=== PATIENT | female | born 1965 ===

== ENCOUNTER 2024-07-24 12:11 | Emergency (ER) | payer MEDICARE ==
[~2024-07-24] VITALS: Ht 160 cm; Wt 72.6 kg
[2024-07-24] MEDS ORDERED: Ondansetron HCl 2 MG / ML 2ML Vial IV ONE (12:30)
[2024-07-24 12:41] LABS: BASOPHILS ABSOLUTE AUTO 0.05 K/mm3 (0.00-0.23); BASOPHILS PERCENT AUTO 1 % (0-2); EOSINOPHILS ABSOLUTE AUTO 0.07 K/mm3 (0.00-0.68); EOSINOPHILS PERCENT AUTO 1 % (0-6); IMMATURE GRAN ABSOLUTE AUTO 0.02 K/mm3 (0.00-0.10); IMMATURE GRAN PERCENT AUTO 0 % (0-1); LYMPHOCYTES ABSOLUTE AUTO 1.03 K/mm3 (0.84-5.20); LYMPHOCYTES PERCENT AUTO 13 % (21-46); MONOCYTES ABSOLUTE AUTO 0.33 K/mm3 (0.16-1.47); MONOCYTES PERCENT AUTO 4 % (4-13); Mean Corpuscular HGB 32.5 pg (26.0-34.0); Mean Corpuscular HGB Conc 33.3 g/dL (31.5-36.5); Mean Corpuscular Volume 98 fL (80-100); Mean Platelet Volume 10.1 fL (9.1-12.4); NEUTROPHILS ABSOLUTE AUTO 6.23 K/mm3 (1.96-9.15); NEUTROPHILS PERCENT AUTO 81 % (41-73); Platelet Count 257 K/mm3 (150-400); RDW Coefficient Variation 12.8 % (11.7-14.2); RDW Standard Deviation 45.5 fL (35.1-46.3); White Blood Cell Count 7.73 K/mm3 (4.00-11.30)
[2024-07-24 12:57] LABS: Source, Urine Clean Catch
[2024-07-24 13:01] LABS: Albumin/Globulin Ratio 1.2 (0.8-1.8); Bilirubin, Total 0.3 mg/dL (0.1-1.0); Bun/Creatinine Ratio 32.3 (12.0-20.0); Calcium, Blood 9.4 mg/dL (8.5-10.1); Creatinine, Blood 0.84 mg/dL (0.40-1.00); Globulin, Blood 3.4 g/dL (2.2-4.0); Potassium, Blood 4.8 mmol/L (3.5-5.5); Total Protein, Blood 7.4 g/dL (6.4-8.2)
[2024-07-24 13:03] LABS: Bilirubin, Urine Neg (Neg); Blood, Urine 4+ (Neg); Color, Urine Yellow (P-Yellow); Glucose Qualitative, Urine Neg (Neg); Ketones, Urine Neg (Neg); Leukocyte Esterase, Urine Neg (Neg); Nitrite, Urine Neg (Neg); Protein, Urine Neg (Neg); Specific Gravity, Urine 1.025 (1.003-1.022); Urobilinogen, Urine NORM (Normal)
[2024-07-24 13:59] LABS: Appearance, Urine Hazy (Clear)
[2024-07-24 14:06] LABS: Amorphous Light (0-Heavy); Bacteria Mod /hpf; Mucus Light (0-Heavy); Red Blood Cells, Urine 50-100 /hpf (0-2); Squamous Epithelial Cells Rare /hpf (Few); White Blood Cells, Urine 0-2 /hpf (0-5)
== END 2024-07-24 13:21 | disposition left against medical advice (07) ==
LOC: ER 12:11
PROVIDERS: Emergency Medicine
DX: R10.9 Unspecified abdominal pain (principal); M54.9 Dorsalgia, unspecified; Z53.21 Procedure and treatment not carried out due to patient leaving prior to being seen by health care provider; K57.30 Diverticulosis of large intestine without perforation or abscess without bleeding; Z90.710 Acquired absence of both cervix and uterus; K76.0 Fatty (change of) liver, not elsewhere classified; R31.9 Hematuria, unspecified
CPT/HCPCS: 74022; 74176; 80053; 81001; 83690; 85025; 87086

== ENCOUNTER → 2024-07-24 | Outpatient (CLI) | payer MEDICARE ==
[2024-07-24 15:04] LABS: BASOPHILS ABSOLUTE AUTO 0.04 K/mm3 (0.00-0.23); BASOPHILS PERCENT AUTO 1 % (0-2); EOSINOPHILS ABSOLUTE AUTO 0.02 K/mm3 (0.00-0.68); EOSINOPHILS PERCENT AUTO 0 % (0-6); Hematocrit 39.5 % (33.0-51.0); Hemoglobin 13.3 g/dL (11.5-16.0); IMMATURE GRAN ABSOLUTE AUTO 0.01 K/mm3 (0.00-0.10); IMMATURE GRAN PERCENT AUTO 0 % (0-1); LYMPHOCYTES PERCENT AUTO 20 % (21-46); MONOCYTES ABSOLUTE AUTO 0.29 K/mm3 (0.16-1.47); MONOCYTES PERCENT AUTO 4 % (4-13); Mean Corpuscular HGB 32.4 pg (26.0-34.0); Mean Corpuscular HGB Conc 33.7 g/dL (31.5-36.5); Mean Corpuscular Volume 96 fL (80-100); Mean Platelet Volume 9.9 fL (9.1-12.4); NEUTROPHILS ABSOLUTE AUTO 4.99 K/mm3 (1.96-9.15); NEUTROPHILS PERCENT AUTO 75 % (41-73); Platelet Count 269 K/mm3 (150-400); RDW Coefficient Variation 13.1 % (11.7-14.2); RDW Standard Deviation 46.1 fL (35.1-46.3); White Blood Cell Count 6.65 K/mm3 (4.00-11.30)
[2024-07-24 15:16] LABS: Albumin, Blood 4.1 g/dL (3.4-5.0); Albumin/Globulin Ratio 1.1 (0.8-1.8); Bilirubin, Total 0.4 mg/dL (0.1-1.0); Bun/Creatinine Ratio 25.6 (12.0-20.0); Calcium, Blood 9.5 mg/dL (8.5-10.1); Creatinine, Blood 0.9 mg/dL (0.40-1.00); Globulin, Blood 3.6 g/dL (2.2-4.0); Potassium, Blood 4.6 mmol/L (3.5-5.5); Total Protein, Blood 7.7 g/dL (6.4-8.2)
== END ==
LOC: LAB SHORT 15:00 → LAB 15:00
PROVIDERS: Physician Assistant
DX: R10.9 Unspecified abdominal pain (principal); R31.9 Hematuria, unspecified
CPT/HCPCS: 80053; 83690; 85025; 87086

== ENCOUNTER → 2024-11-01 | Outpatient (CLI) | payer MEDICARE | END | disposition home or self-care (01) | LOC: LAB SHORT 11:15 → LAB 11:15 | DX: A04.8 Other specified bacterial intestinal infections (principal) | CPT/HCPCS: 87338 ==

== ENCOUNTER 2025-01-19 03:12 | Day surgery (SDC) | payer MEDICARE ==
[2025-01-19] MEDS ORDERED: Cosyntropin 0.25 MG / ML 1ML Vial IV SCH (06:50)
[2025-01-19 08:50] VITALS: BP 126/72
[2025-01-19] MEDS ORDERED: Buspirone HCl15 MG PO (12:18)
[2025-01-19] MEDS ORDERED: CYMBALTA30 M2 PO (12:19)
[2025-01-19] MEDS ORDERED: TRAZ50 PO (12:19)
[2025-01-19] MEDS ORDERED: NEURONTIN300 MG PO (12:19)
[2025-01-19] MEDS ORDERED: ALBU90OI INH (12:20)
[2025-01-19] MEDS ORDERED: ALEN70 PO (12:20)
[2025-01-19] MEDS ORDERED: MELO7.5 PO (12:21)
[2025-01-19] MEDS ORDERED: DILT60 PO (12:21)
[2025-01-19] MEDS ORDERED: OMEP20ER PO (12:21)
== END 2025-01-19 10:04 | disposition home or self-care (01) ==
LOC: ATC 03:12
DX: R42 Dizziness and giddiness (principal); E78.5 Hyperlipidemia, unspecified; Z88.0 Allergy status to penicillin; Z88.1 Allergy status to other antibiotic agents; Z79.899 Other long term (current) drug therapy
CPT/HCPCS: 80400; 82533; 96374; J0834

== ENCOUNTER 2025-05-23 08:15 | Day surgery (SDC) | payer MEDICARE ==
[~2025-05-23] VITALS: Ht 152.4 cm; Wt 74.8 kg
[~2025-05-23 08:15] MED LIST: ALBU90OI INH; ALEN70 PO; ATOR40TA PO; Aspir 8181 MG PO; Buspirone HCl15 MG PO; CYMBALTA30 M2 PO; DILT60 PO; MELO7.5 PO; NEURONTIN300 MG PO; OMEP20ER PO; TRAZ50 PO
[2025-05-23] MEDS ORDERED: NS 0 ML IV ONE (10:08)
[2025-05-23] MEDS ORDERED: Nitroglycerin 2 MG/20 ML BTL ONE (10:46)
[2025-05-23] MEDS ORDERED: Heparin Sodium 1000 Units/ML 10ML MDV ONE (10:46)
[2025-05-23] MEDS ORDERED: NiCARdipine HCL 1,000 MCG/5 ML SYR ONE (10:46)
[2025-05-23] MEDS ORDERED: NS 250 ML IV ONE (10:46)
[2025-05-23] MEDS ORDERED: NS 1,000 ML IV ONE ×2 (10:46→11:04)
[2025-05-23] MEDS ORDERED: FentaNYL Citrate 50 MCG/ML 2 ML Injection ONE (11:04)
[2025-05-23] MEDS ORDERED: Midazolam HCl 1MG / ML 2ML Vial ONE (11:04)
[2025-05-23 12:00] VITALS: BP 111/68
[2025-05-23 12:15] VITALS: BP 117/79
[2025-05-23 12:30] VITALS: BP 114/66
[2025-05-23 13:00] VITALS: BP 105/63
[2025-05-23 13:30] VITALS: BP 115/62
--- NOTE | 2025-05-23 14:30 | NUR ---
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
== END 2025-05-23 14:30 | disposition home or self-care (01) ==
LOC: MHTC 08:15
DX: R07.89 Other chest pain (principal); E78.5 Hyperlipidemia, unspecified; I95.1 Orthostatic hypotension; E66.3 Overweight; Z68.32 Body mass index [BMI] 32.0-32.9, adult; Z79.82 Long term (current) use of aspirin; Z79.899 Other long term (current) drug therapy; Z88.0 Allergy status to penicillin
CPT/HCPCS: 76937; 93454; 99152; 99153; A9270; C1769; C1894; J1644; J2250; J3010; J7030; J7050; Q9967